=== PATIENT | male | born 1955 | race Caucasian/White ===

== ENCOUNTER 2016-10-29 10:06 | Emergency (ER) ==
[2016-10-29 10:25] VITALS: BP 157/90
--- NOTE | 2016-10-29 11:50 | Diag Imaging Result Document ---
PROCEDURE NAME: KNEE 3 VIEWS RIGHT - 10/29/2016 RIGHT KNEE THREE VIEWS: FINDINGS: No fracture. No dislocation. Minimal medial joint space narrowing with tiny bone spurs through the medial tibial plateau and femoral condyle. No fracture. No dislocation. IMPRESSION: Mild arthritic changes.
--- NOTE | 2016-10-29 12:02 | PROVIDER DOCUMENTATION ---
HPI-Musculoskeletal Pain/Inj - GENERAL Chief Complaint: Extremity Pain Stated Complaint: EXTREMITY PAIN Time Seen by Provider: 10/29/16 11:16 Source: patient - HX OF PRESENT ILLNESS-MUSKULOSKELTAL Nature of Presenting Problem: 60 yo male presents to ER with c/o right knee pain that started 4 days ago with the changing weather. Quality of Pain: reports: aching, throbbing Severity in ED: moderate Onset/Duration: 4 days ago Timing: still present Modifying Factors: improves with: movement (worsens) Any recent injury?: No Similar Symptoms Previously?: Yes Recently seen or treated by another doctor?: No - LOWER EXTREMITY PAIN/INJURY Lower Extremities Pain: knee: right Context / Method of Injury: reports: unknown Associated Symptoms: reports: denies symptoms Review of Systems - Adult - REVIEW OF SYSTEMS - ADULT Constitutional: reports: no symptoms reported Eyes: reports: no symptoms reported Ears, Nose, Mouth & Throat: reports: no symptoms reported Cardiovascular: reports: no symptoms reported Respiratory: reports: no symptoms reported Gastrointestinal: reports: no symptoms reported Genitourinary: reports: no symptoms reported Musculoskeletal: reports: see HPI, joint pain Integumentary: reports: no symptoms reported Neurological: reports: no symptoms reported Psychiatric: reports: no symptoms reported Endocrine: reports: no symptoms reported Hematologic/Lymphatic: reports: no symptoms reported Allergic/Immunologic: reports: no symptoms reported All Other Systems: Reviewed and Negative Past History - Adult - PAST MEDICAL HISTORY-ADULT Review of Records: reports: Old Records Reviewed, Nursing Assessment Review, Medications Reviewed, Social history reviewed & non-contributory. Major Childhood Illnesses: reports: denies history Cardiovascular: reports: HTN, hyperlipidemia Respiratory: reports: COPD Gastrointestinal: reports: denies history Obstetrical/Gynecological: reports: denies history Genitourinary: reports: denies history Musculoskeletal: reports: arthritis Neurological: reports: denies history Endocrine/Immune: reports: Diabetes Other Conditions: reports: denies history - PRIOR SURGERIES/PROCEDURES Surgical/Procedure History: reports: orthopedic (extremity) (bilateral shoulder surgery) - IMMUNIZATION STATUS Childhood Immunizations: See Nurse Assessment Flu Vaccine: See Nurse Assessment - FAMILY HISTORY Family History: reviewed, not pertinent - SOCIAL HISTORY Smoking: denies, non-smoker Substance Use: none/never Alcohol Use Frequency: occasionally Living Situation: family Physical Exam-Injury Related - Physical Exam-Injury Related Initial Vital Signs Reviewed: Yes General Appearance: appears well, alert, no apparent distress Eyes: PERRL/EOMI Head, Ears, Nose, Mouth & Throat: normocephalic/atraumatic Respiratory: no respiratory distress Extremity: normal range of motion, normal inspection, swelling, other (pain with ROM; moderate crepitus felt) Integumentary: normal color, warm/dry Neurologic: grossly normal Psych/Mental Status: normal mood/affect, normal thought content, normal thought process, oriented x 3 - Glascow Coma Score Best Eye Response ([place]): (4) open spontaneously Best Verbal Response ([place]): (5) oriented Best Motor Response ([place]): (6) obeys commands [place] Total: 15 Progress - PLAN OF CARE/RESULTS Progress/Plan/Lab Results: 1200-Discussed x-ray result/dx/tx/discharge and f/u with PCP about arthritis medications for flare; he verbalized understanding. Orders Category Date Time Status KNEE 3 VIEWS RIGHT [RAD] Stat Exams 10/29/16 10:32 Completed Ketorolac [Toradol] Med 10/29/16 12:03 Discontinued 30 mg IM NOW ONE Vital Signs - 24 hr 10/29/16 10:23 Temperature 97.8 F Pulse Rate 85 Respiratory 18 Rate Blood Pressure 157/90 O2 Sat by Pulse 98 Oximetry - XRAY 1 XRAY: Right XRAY Study: Knee Impression: Abnormal (mild arthritis) XRAY Interpretation: Interpreted by Dr. Darnell Departure - Departure Time of Disposition Order: 12:06 DIAGNOSIS: Arthritis of knee, right Knee pain, right Qualifiers: Chronicity: acute Qualified Code(s): M25.561 - Pain in right knee Disposition: HOME 01 Certified Medical Emergency: Emergent Condition: Good Additional Instructions: Follow up with primary care doctor. Take medications as prescribed. ED Follow Up Instructions: You have been treated by a care provider in the Emergency Department. These instructions are being provided to you so you can have an understanding of how to care for yourself upon discharge. Upon discharge from the Emergency Department, you are responsible for making arrangements for follow-up care by a physician of your choice. Take all prescribed medications as directed. Return to the Emergency Department immediately for any new or worsening symptoms. You may call the Physician Referral phone number at [phone] to obtain a list of Physicians who are taking new patients. Prescriptions: Naproxen 500 mg PO BID PRN PRN #20 tablet PRN Reason: Pain Omeprazole [Prilosec] 20 mg PO HS #30 capsule Referrals: None,PCP [Primary Care Provider] - Attestation - Physician/ TRUDI Attestation Patient care was provided by Advanced Practice Provider:: Yes Advanced Practice Provider:: Kay Mckeon Advanced Practice Provider documentation review:: The Mid-level provider documentation, treatment plan and medical decision making was reviewed by the physician who agrees with all treatment and medical decision making by the MLP.
[2016-10-29] MEDS ORDERED: TORADOL IM ONE (12:03)
== END 2016-10-29 12:32 | disposition home or self-care (01) ==
LOC: P.ED 10:06
DX: M17.11 Unilateral primary osteoarthritis, right knee (principal); M25.561 Pain in right knee; M25.461 Effusion, right knee; I10 Essential (primary) hypertension; E78.5 Hyperlipidemia, unspecified; J44.9 Chronic obstructive pulmonary disease, unspecified; E11.9 Type 2 diabetes mellitus without complications
CPT/HCPCS: 96372; J1885